=== PATIENT | female | born 1995 | race Caucasian/White ===

== ENCOUNTER 2022-10-10 09:41 | Emergency (ER) | payer MEDICAID ==
[~2022-10-10] VITALS: Ht 175.3 cm; Wt 135.0 kg
[2022-10-10 09:53] VITALS: BP 116/79
[2022-10-10 11:04] LABS: CLARITY,URINE CLOUDY (Clear); COLOR,URINE YELLOW (Yellow); GLUCOSE, URINE NEGATIVE (Neg); KETONES,URINE NEGATIVE (Neg); LEUKOCYTE ESTERASE ,URINE TRACE (Neg); NITRITES, URINE NEGATIVE (Neg); OCCULT BLOOD,URINE NEGATIVE (Neg); PROTEIN,URINE 30 mg/dl (Neg); UROBILINOGEN,URINE 0.2 E.U/dL (0.2-1.0)
[2022-10-10 11:06] LABS: UA COLLECTION TYPE CLN CATCH MIDSTREAM
[2022-10-10 11:10] LABS: URINE HCG NEGATIVE (NEG)
[2022-10-10 11:16] LABS: MUCUS STRANDS MANY /LPF (Neg)
[2022-10-10 11:17] LABS: BACTERIA,URINE FEW /HPF (Neg); TRANSITIONAL EPI CELLS,URINE FEW /HPF
[2022-10-10 11:19] LABS: RBC,URINE 0-2 /HPF (0-2); WBC CLUMPS,URINE FEW /HPF (NEGATIVE)
[2022-10-10 11:22] LABS: SQUAMOUS EPITHELIAL CELL,UR MANY /LPF (FEW)
== END 2022-10-10 13:28 | disposition left against medical advice (07) ==
LOC: ER 09:42
DX: F41.9 Anxiety disorder, unspecified (principal); Z53.21 Procedure and treatment not carried out due to patient leaving prior to being seen by health care provider
CPT/HCPCS: 81001; 81025; 99281

== ENCOUNTER 2022-11-25 09:30 | Emergency (ER) | payer MEDICAID ==
[~2022-11-25] VITALS: Ht 175.3 cm; Wt 127.3 kg
[2022-11-25 09:37] VITALS: BP 159/102; PULSE 92; RESP 16; TEMP 98.3; O2SAT 98
[2022-11-25 10:12] LABS: URINE HCG NEGATIVE (NEG)
[2022-11-25 10:17] LABS: BASOPHILS # (AUTO) 0.1 X10'3 (0-0.2); BASOPHILS % (AUTO) 0.5 % (0-1); EOSINOPHILS # (AUTO) 0.1 X10'3 (0-0.9); EOSINOPHILS % (AUTO) 0.6 % (0-6); HEMATOCRIT 40.3 % (35.0-45.0); LYMPHOCYTES # (AUTO) 2.1 X10'3 (1.1-4.8); LYMPHOCYTES % (AUTO) 19.8 % (21-51); MEAN CORPUSCULAR HEMOGLOBIN 24.8 PG (27.0-31.0); MEAN CORPUSCULAR HGB CONC 32.2 g/dL (33.0-36.5); MEAN CORPUSCULAR VOLUME 77.1 FL (78-98); MEAN PLATELET VOLUME 8.2 FL (7.4-10.4); MONOCYTES # (AUTO) 0.8 X10'3 (0-0.9); NEUTROPHILS # (AUTO) 7.5 X10'3 (1.8-7.7); NEUTROPHILS % (AUTO) 71.1 % (42-75); PLATELET COUNT 358 X10'3 (140-440); RED BLOOD COUNT 5.24 X10'6 (4.20-5.60); RED CELL DISTRIBUTION WIDTH 16.5 % (11.5-14.5); WHITE BLOOD COUNT 10.6 X10'3 (4.5-11.0)
[2022-11-25 10:21] LABS: CLARITY,URINE CLOUDY (Clear); COLOR,URINE YELLOW (Yellow); GLUCOSE, URINE NEGATIVE (Neg); KETONES,URINE NEGATIVE (Neg); LEUKOCYTE ESTERASE ,URINE NEGATIVE (Neg); NITRITES, URINE NEGATIVE (Neg); OCCULT BLOOD,URINE NEGATIVE (Neg); PROTEIN,URINE 30 mg/dl (Neg); UROBILINOGEN,URINE 0.2 E.U/dL (0.2-1.0)
[2022-11-25 10:28] LABS: UA COLLECTION TYPE CLN CATCH MIDSTREAM
[2022-11-25 10:31] LABS: ALANINE AMINOTRANSFERASE 26 U/L (12-78); ALBUMIN 3.9 G/DL (3.4-5.0); ALBUMIN/GLOBULIN RATIO 0.8 (1.1-1.5); ALKALINE PHOSPHATASE 86 IU/L (46-116); ANION GAP 9 (8-16); ASPARTATE AMINO TRANSFERASE 18 U/L (10-37); BILIRUBIN,TOTAL 0.5 MG/DL (0.1-1.0); BLOOD UREA NITROGEN 12 MG/DL (7-18); CHLORIDE 104 MMOL/L (99-107); GLUCOSE 107 MG/DL (70-104); LIPASE 65 U/L (73-393); POTASSIUM 3.9 MMOL/L (3.5-5.1); SODIUM 138 MMOL/L (135-145); TOTAL CARBON DIOXIDE 25.5 MMOL/L (24-32); TOTAL PROTEIN 8.8 G/DL (6.4-8.2); eGFR 87 ML/MIN
[2022-11-25 10:39] LABS: CALCIUM 9.3 MG/DL (8.5-10.1)
[2022-11-25 10:42] LABS: MUCUS STRANDS MANY /LPF (Neg); SQUAMOUS EPITHELIAL CELL,UR MANY /LPF (FEW)
[2022-11-25 10:43] LABS: TRANSITIONAL EPI CELLS,URINE FEW /HPF
[2022-11-25 10:45] LABS: BACTERIA,URINE 1+ /HPF (Neg); RBC,URINE 0-2 /HPF (0-2)
== END 2022-11-25 17:24 | disposition left against medical advice (07) ==
LOC: ER 09:30
DX: R11.10 Vomiting, unspecified (principal); K92.1 Melena; Z53.21 Procedure and treatment not carried out due to patient leaving prior to being seen by health care provider
CPT/HCPCS: 36415; 80053; 81001; 81025; 83690; 85025; 99281

== ENCOUNTER 2023-03-01 10:28 | Emergency (ER) | payer MEDICAID ==
[~2023-03-01] VITALS: Ht 175.3 cm; Wt 127.3 kg
[2023-03-01 10:38] VITALS: BP 136/86; PULSE 95; TEMP 98.4; O2SAT 97
[2023-03-01 11:28] LABS: STREP A SCREEN POSITIVE (Neg)
[2023-03-01] MEDS ORDERED: ketorolac trometh. 30mg/ml inj. IM ONE (11:40)
[2023-03-01] MEDS ORDERED: ondansetron 4mg rapidly disintigrating tab PO ONE (11:40)
[2023-03-01] MEDS ORDERED: LIDOcaine Viscous 15ml cup MM PRN (11:55)
[2023-03-01 12:01] VITALS: RESP 16
[2023-03-01] MEDS ORDERED: AMOX-106 PO (12:42)
[2023-03-01] MEDS ORDERED: amoxicillin 250mg capsule PO ONE (12:45)
== END 2023-03-01 13:13 | disposition home or self-care (01) ==
LOC: ER 10:28
DX: J02.0 Streptococcal pharyngitis (principal); Z20.822 Contact with and (suspected) exposure to COVID-19
CPT/HCPCS: 36415; 87502; 87503; 87811; 87880; 96372; 99284; J1885

== ENCOUNTER 2023-03-25 15:07 | Emergency (ER) | payer MEDICAID ==
[~2023-03-25] VITALS: Ht 175.3 cm; Wt 127.1 kg
[2023-03-25] MEDS ORDERED: ipratropium/albuterol 3ml nebule NEB ONE (16:05)
[2023-03-25] MEDS ORDERED: guaiFENesin/DM 10ml UD oral syrup PO STA (16:06)
[2023-03-25 16:41] LABS: URINE HCG NEGATIVE (NEG)
[2023-03-25 16:58] VITALS: PULSE 78; RESP 16; O2SAT 99
[2023-03-25 17:18] VITALS: PULSE 83; RESP 16; O2SAT 98
[2023-03-25] MEDS ORDERED: dexamethasone sod phosphate 10mg/ml inj PO STA (17:40)
[2023-03-25] MEDS ORDERED: benzonatate 100mg capsule PO ONE (17:45)
[2023-03-25 17:46] LABS: STREP A SCREEN NEGATIVE (Neg)
[2023-03-25] MEDS ORDERED: ALBU6.7H14 INH (18:09)
[2023-03-25] MEDS ORDERED: BENZ-38 PO (18:09)
[2023-03-25 18:38] VITALS: BP 136/72; PULSE 77; TEMP 98.2; O2SAT 100
[2023-03-25 18:44] VITALS: RESP 18
== END 2023-03-25 18:45 | disposition home or self-care (01) ==
LOC: ER 15:08
DX: J20.9 Acute bronchitis, unspecified (principal); Z20.822 Contact with and (suspected) exposure to COVID-19; R05.9 Cough, unspecified; Z91.013 Allergy to seafood; Z79.899 Other long term (current) drug therapy
CPT/HCPCS: 36415; 71045; 81025; 87077; 87081; 87502; 87503; 87811; 87880; 94640; 94664; 99284; J1100; 94760

== ENCOUNTER 2024-10-07 10:25 | Emergency (ER) | payer SELFPAY ==
[~2024-10-07] VITALS: Ht 175.3 cm; Wt 134.7 kg
[~2024-10-07 10:25] MED LIST: ALBU6.7H14 INH
[2024-10-07 10:43] VITALS: BP 142/90; PULSE 100; RESP 16; TEMP 98.5; O2SAT 97
== END 2024-10-07 15:50 | disposition left against medical advice (07) ==
LOC: ER 10:26
DX: R10.9 Unspecified abdominal pain (principal); N93.9 Abnormal uterine and vaginal bleeding, unspecified; Z53.21 Procedure and treatment not carried out due to patient leaving prior to being seen by health care provider; Z88.8 Allergy status to other drugs, medicaments and biological substances; Z91.040 Latex allergy status